=== PATIENT | female | born 2000 | race Caucasian/White ===

== ENCOUNTER 2024-04-04 20:02 | Emergency (ER) | payer SELFPAY ==
[2024-04-04 20:08] VITALS: BP 133/80
[2024-04-04] MEDS: TYLENOL 1000 MG PO (21:01)
--- NOTE | 2024-04-04 23:37 | ED.GENMED ---
History of Present Illness
General
Chief Complaint: Head Injury
Source: patient
Exam Limitations: none
Time Seen by Provider: 04/04/24 20:26
Nursing documentation reviewed up to this point in time: agreed with
Phy Exam
Neurological Exam
Neurological Exam: alert, oriented x3, CN II-XII intact, no motor deficits, no sensory deficits and speech normal
[place] Coma Scale
Eye Opening: Spontaneous
Verbal Response: Oriented
Motor Response: Obeys Commands
GCS Total Score: 15
Mental
Mental Status: oriented to person, oriented to place and oriented to time
Describe Speech: normal speech
Cranial
Cranial Nerves: normal
EOM (CN3/4/6): intact
Motor
Seizure Activity: none
Gait: normal
Tremors: none
Other Movement Disorders: none
Right upper extremity: 4
Right lower extremity: 4
Left upper extremity: 4
Left lower extremity: 4
Bilateral upper extremities: 4
Bilateral lower extremities: 4
Sensory
Sensory Exam: intact
Cerebellar
Cerebellar Function: normal finger to nose and normal Romberg test
Course
Orders/Labs/Results
Orders:
Orders
04/04/24 20:54
Acetaminophen [Tylenol] 1,000 mg PO NOW STA
CR Cervical Spine 2 or 3 Vw Urgent
Reason For Exam: trauma
Vital Signs
Initial and Last Documented VS:
Initial Vital Signs
Temp Pulse Resp Pulse Ox
98.7 F 74 18 100
04/04/24 20:07 04/04/24 20:07 04/04/24 20:07 04/04/24 20:07
Last Documented Vital Signs
Temp Pulse Resp BP Pulse Ox
98.7 F 74 18 133/80 100
04/04/24 20:07 04/04/24 20:07 04/04/24 20:07 04/04/24 20:08 04/04/24 20:07
ED Attending Note
-
Portions of this chart may have been created with voice recognition software.� Occasional wrong word or��sound alike� substitutions may have occurred due to the inherent limitations of voice recognition software.
Discharge Plan
Departure
Patient Disposition: Home (Routine Discharge)
Date of Disposition: 04/04/24
Time of Disposition: 21:40
Patient with high blood pressure during this ER visit?: No
Condition: Good
Covid-19: Not Applicable
Discharge Problem:
Head injury
Instructions: Head Injury in Adults (DC), Contusion (DC)
Referrals:
UNKNOWN - PT DOES,NOT KNOW [Family Provider] -
Stand Alone Forms: Return to Work
Activity Restrictions/Additional Instructions:
Follow up with your workman's comp provider in the AM
Interventions
Interventions:
*Nursing Disposition Last Done: 04/04/24 21:53
ED- Neurological Assessment Last Done: 04/04/24 21:02
ED-Skin Assessment Last Done: 04/04/24 21:02
Discharge Date and Time
Discharge Date/Time: 04/04/24 21:54
Print Language: SERBIAN
== END 2024-04-04 21:54 | disposition home or self-care (01) ==
LOC: EMR 20:02
PROVIDERS: EMERGENCY PHYSICIAN Emergency Medicine
DX: S09.90XA Unspecified injury of head, initial encounter (principal); Y04.2XXA Assault by strike against or bumped into by another person, initial encounter; Y93.89 Activity, other specified; Y92.89 Other specified places as the place of occurrence of the external cause; Y99.0 Civilian activity done for income or pay
CPT/HCPCS: 99283; 72040